=== PATIENT | male | born 1975 | race Caucasian/White ===

== ENCOUNTER 2021-01-23 13:36 | Emergency (ER) | payer OTHER, SELFPAY ==
[2021-01-23 13:40] VITALS: BP 133/79; PULSE 72; RESP 18; TEMP 36.5; O2SAT 99
--- NOTE | 2021-01-23 13:45 | DI.RAD_ITS ---
EXAM: XR HAND RT LIMITED CLINICAL HISTORY: R/O FB (glass) Index finger, 2nd 3rd digit. TECHNIQUE: 2D digital imaging was performed. COMPARISON: No exams were available for comparison FINDINGS: BONES: No acute fracture is present. No bony destructive lesion is seen. JOINTS: No dislocation present. SOFT TISSUE: Normal. No radiopaque foreign body. IMPRESSION: No radiopaque foreign body identified. DATA REPOSITORY: RADIATION DOSE DELIVERED:
--- NOTE | 2021-01-23 13:51 | ED.GENADUL_ITS ---
Discharge Plan Disposition Patient Disposition: HOME Condition: Stable Discharge Details Clinical Impression: Laceration of right little finger w/o foreign body w/o damage to nail Primary Care Provider: Unknown,Unknown ED Provider: aMrcela De León Home Meds and New Rx's Prescriptions: No Action No Known Home Meds RF: 0 Discharge Instructions Instructions: Finger Laceration (ED), Skin Adhesive Care (ED) Additional Instructions: Keep clean and dry. No soaking. May remove the dressing in 12 to 24 hours. Return to the ED for any signs of infection including increased redness, swelling, drainage, red streaks or any concerns. Please take Tylenol or Ibuprofen with food every 4-6 hours as needed for pain and swelling. Follow up with primary care provider in 3-5 days. Return to ED sooner if any worsening or concerns. Increase oral fluids. Discharge Data Discharge Date/Time-TO BE ENTERED AT DEPARTURE: 01/23/21 14:57 Medical Decision Making 25-year-old male presents to the ER with chief complaint of right chest pain third, fourth, and pinky finger lacerations after a trip and fall while holding a glass bowl landing on his knees. He states that the glass bowl shattered and cut his finger. He does have full range of motion noted to his digit. He denies any significant injury to his knees has full range of motion to his knee. He has a laceration to the palmar surface of his right pinky finger approximately 1 and half centimeter long slow bleed noted which is controlled with pressure. Very small lacerations noted to his third and fourth fingers bleeding is controlled at this point. He is unsure of his last tetanus vaccination status. He has no other complaints at this time. Imaging ordered to rule out foreign body, tetanus vaccination ordered. EXAM: XR HAND RT LIMITED CLINICAL HISTORY: R/O FB (glass) Index finger, 2nd 3rd digit. TECHNIQUE: 2D digital imaging was performed. COMPARISON: No exams were available for comparison FINDINGS: BONES: No acute fracture is present. No bony destructive lesion is seen. JOINTS: No dislocation present. SOFT TISSUE: Normal. No radiopaque foreign body. IMPRESSION: No radiopaque foreign body identified. Bleeding is controlled at this time. Laceration approximated with tissue adhesive, 3 Steri-Strips and pressure dressing. Discussed home care and strict return instructions with patient he verbalizes understanding. HPI General Mode of arrival: ambulatory . Date/Time Provider Initiated Documentation: 01/23/21 13:40 . Limitations to Documentation: no limitations . Information obtained by: patient . HPI Narrative: 25-year-old male presents to the ER with chief complaint of right chest pain third, fourth, and pinky finger lacerations after a trip and fall while holding a glass bowl landing on his knees. He states that the glass bowl shattered and cut his finger. He does have full range of motion noted to his digit. He denies any significant injury to his knees has full range of motion to his knee. He has a laceration to the palmar surface of his right pinky finger approximately 1 and half centimeter long slow bleed noted which is controlled with pressure. Very small lacerations noted to his third and fourth fingers bleeding is controlled at this point. He is unsure of his last tetanus vaccination status. He has no other complaints at this time. Related Data Home Medications Medication Instructions Recorded Confirmed Unknown [No Known Home Meds] 01/23/21 01/23/21 Allergies Allergy/AdvReac Type Severity Reaction Status Date / Time No Known Allergies Allergy Unverified 01/23/21 13:42 General Stated Complaint: Laceration BINTA: 3 Review of Systems All systems reviewed & are unremarkable except as noted in HPI and below Constitutional Constitutional: Reports as per HPI, Denies headache(s) and Denies weakness ENT Ears, Nose, Mouth, and Throat: Denies headache(s) Musculoskeletal Musculoskeletal: Denies deformity, Denies joint swelling and Denies limited range of motion Integumentary/Breasts Skin/Breast: Reports as per HPI and Reports wounds (Laceration pinky finger, third and fourth fingers status post fall) Neurologic Neurologic: Denies headache(s) and Denies weakness [facility] Social History Smoking/Tobacco Use Status: Former Tobacco Use Smoking risk assessment performed?: Yes Alcohol Intake: former Substance use type: former substance user Do you feel safe at home: Yes Do you feel safe in your relationship?: Yes Exam Extrem Right upper extremity: hand Details: laceration 2nd digit palmar aspect distal Details: linear and involving subcutaneous tissue Hand/finger images: 1. Tiny superficial laceration 2. Tiny superficial laceration 3. 1.5 cm laceration palmar surface of right fifth digit, full range of motion. Course Vital Signs Vital signs: Vital Signs Temperature 36.5 C 01/23/21 13:40 Pulse 72 01/23/21 13:40 Respiratory Rate 18 01/23/21 13:40 Blood Pressure 133/79 01/23/21 13:40 Pulse Oximetry 99 01/23/21 13:40 Temperature 36.5 C 01/23/21 13:40 Temperature Source Temporal Artery Scan 01/23/21 13:40 Pulse 72 01/23/21 13:40 Respiratory Rate 18 01/23/21 13:40 Respiratory Effort Non-Labored 01/23/21 13:43 Blood Pressure 133/79 01/23/21 13:40 Blood Pressure Position Sitting 01/23/21 13:40 Pulse Oximetry 99 01/23/21 13:40 Oxygen Delivery Method Room Air 01/23/21 13:40 Oxygen Flow Rate 0 01/23/21 13:40 Pain Level 2 01/23/21 13:40 Procedures Laceration Laceration 1: Site: hand (Pinky Finger) Side (If applicable): right Size (cm): 1.5 Description: linear Depth: simple, single layer Local Anesthetic: other anesthetic (None) Pre-repair: wound explored, irrigated extensively and deep structures intact Skin layer closed with: other (Tissue adhesive, steri strips X 3)
== END 2021-01-23 14:57 | disposition home or self-care (01) ==
PROVIDERS: Emergency Provider Registered Nurse Emergency
DX: S61.216A Laceration without foreign body of right little finger without damage to nail, initial encounter (principal); W25.XXXA Contact with sharp glass, initial encounter
CPT/HCPCS: 12001; 90471; 99281; 73120